=== PATIENT | female | born 1970 | race Caucasian/White ===

== ENCOUNTER 2019-10-20 19:27 | Emergency (ER) | payer SELFPAY ==
[~2019-10-20] VITALS: Ht 152.4 cm; Wt 97.9 kg
[2019-10-20 19:35] VITALS: BP 184/104
[2019-10-20] MEDS ORDERED: NYSTATIN CRM 15GM TP PRN (21:00)
== END 2019-10-20 21:18 | disposition home or self-care (01) ==
LOC: ED 19:57
DX: B37.2 Candidiasis of skin and nail (principal); Z72.9 Problem related to lifestyle, unspecified; F17.210 Nicotine dependence, cigarettes, uncomplicated; R00.0 Tachycardia, unspecified; I11.0 Hypertensive heart disease with heart failure; I50.9 Heart failure, unspecified
CPT/HCPCS: 99283; 99406